=== PATIENT | female | born 1980 | race Hispanic/Latino ===

== ENCOUNTER 2019-01-15 19:28 | Emergency (ER) | payer MEDICARE ==
--- NOTE | 2019-01-15 20:56 | Emergency Department Report ---
ED Seizure HPI - General Chief Complaint: Seizure Stated Complaint: SEIZURE Time Seen by Provider: 01/15/19 20:08 Source: EMS, RN notes reviewed, old records reviewed (CT head performed 01/15/2019 at [facility] showed no acute intracranial abnormality) Mode of arrival: Stretcher Limitations: No Limitations - History of Present Illness Initial Comments: 38-year-old female with a past medical history anxiety, methamphetamine abuse, alcohol abuse, and Xanax 1mg use tid presents to the hospital from [facility] for seizure like activity. Patient was just medically cleared by [facility] ER and admitted to [facility] today. Patient was in prison last night after being picked up for public toxic upon release she was not alert and oriented his recent ER evaluation. Presented dismissive and uncooperative and did not want to speak to staff. 1013 was signed for psychosis. Patient had labs and a CT head and was subsequently medically cleared to go to the [facility]. Patient denies a history of seizures with the exception of the seizure she had thismorning. [facility] records state that patient reported an episode of clenching her tongue prior to ED arrival but no signs of tounge injury was seen on exam.. At [facility] today she had an episode that is not well described by staff but thought to be seizure-like activity and patient did not have any disorientation or postictal state after episode. - Related Data Allergies Allergy/AdvReac Type Severity Reaction Status Date / Time No Known Allergies Allergy Verified 01/15/19 19:44 ED Review of Systems ROS: Stated complaint: SEIZURE Other details as noted in HPI Comment: All other systems reviewed and negative ED Past Medical Hx - Past Medical History Previous Medical History?: Yes Hx Seizures: Yes (anxiety, substance abuse: meth, bipolar?) - Surgical History Past Surgical History?: No - Social History Smoking Status: Current Every Day Smoker Substance Use Type: Marijuana, Prescribed, Methamphetamines ED Physical Exam - General Limitations: No Limitations - Other Other exam information: General: No limitations, patient is alert in no acute distress Head exam: Atraumatic, normocephalic Eyes exam: Normal appearance, pupils equal reactive to light, extraocular movements intact ENT: Moist mucous membrane, normal oropharynx Neck exam: Normal inspection, full range of motion, no meningismus nontender Respiratory exam: Clear to auscultation bilateral, no wheezes, rales, crackles Cardiovascular: Normal rate and rhythm, normal heart sounds Abdomen: Soft, nondistended, and nontender, with normal bowel sounds, no rebound, or guarding Extremity: Full range of motion normal inspection no deformity Back: Normal Inspection, full range of motion, no tenderness Neurologic: Alert, oriented x3, cranial nerves intact, no motor or sensory defic it Psychiatric: Intimately cooperative Skin: Warm, dry, intact ED Course Vital Signs 01/15/19 01/15/19 01/15/19 19:28 20:29 21:22 Temperature 98.4 F Pulse Rate 90 79 85 Respiratory 16 20 17 Rate Blood Pressure 120/70 128/84 135/89 [Left] O2 Sat by Pulse 99 100 96 Oximetry 01/16/19 00:04 Temperature Pulse Rate 84 Respiratory 18 Rate Blood Pressure 130/81 [Left] O2 Sat by Pulse 100 Oximetry ED Medical Decision Making - Lab Data Result diagrams: 01/15/19 20:38 01/15/19 20:38 Lab Results 01/15/19 01/15/19 01/15/19 Range/Units 20:38 20:38 20:38 WBC 11.2 H (4.5-11.0) K/mm3 RBC 4.37 (3.65-5.03) M/mm3 Hgb 12.9 (10.1-14.3) gm/dl Hct 38.7 (30.3-42.9) % MCV 89 (79-97) fl MCH 30 (28-32) pg MCHC 33 (30-34) % RDW 13.0 L (13.2-15.2) % Plt Count 271 (140-440) K/mm3 Lymph % (Auto) 10.6 L (13.4-35.0) % Mayes % (Auto) 6.2 (0.0-7.3) % Eos % (Auto) 0.7 (0.0-4.3) % Baso % (Auto) 0.2 (0.0-1.8) % Lymph # 1.2 (1.2-5.4) K/mm3 Mayes # 0.7 (0.0-0.8) K/mm3 Eos # 0.1 (0.0-0.4) K/mm3 Baso # 0.0 (0.0-0.1) K/mm3 Seg Neutrophils % 82.3 H (40.0-70.0) % Seg Neutrophils # 9.2 H (1.8-7.7) K/mm3 Sodium 136 L (137-145) mmol/L Potassium 3.9 (3.6-5.0) mmol/L Chloride 102.3 (98-107) mmol/L Carbon Dioxide 23 (22-30) mmol/L Anion Gap 15 mmol/L BUN 13 (7-17) mg/dL Creatinine 0.9 (0.7-1.2) mg/dL Estimated GFR > 60 ml/min BUN/Creatinine Ratio 14 % Glucose 115 H (65-100) mg/dL Calcium 9.0 (8.4-10.2) mg/dL Magnesium 2.00 (1.7-2.3) mg/dL Total Creatine Kinase (30-135) units/L HCG, Qual (Negative) Urine Opiates Screen Urine Methadone Screen Ur Barbiturates Screen Ur Phencyclidine Scrn Ur Amphetamines Screen U Benzodiazepines Scrn Urine Cocaine Screen U Marijuana (THC) Screen Drugs of Abuse Note 01/15/19 01/15/19 01/15/19 Range/Units 20:38 20:38 22:18 WBC (4.5-11.0) K/mm3 RBC (3.65-5.03) M/mm3 Hgb (10.1-14.3) gm/dl Hct (30.3-42.9) % MCV (79-97) fl MCH (28-32) pg MCHC (30-34) % RDW (13.2-15.2) % Plt Count (140-440) K/mm3 Lymph % (Auto) (13.4-35.0) % Mayes % (Auto) (0.0-7.3) % Eos % (Auto) (0.0-4.3) % Baso % (Auto) (0.0-1.8) % Lymph # (1.2-5.4) K/mm3 Mayes # (0.0-0.8) K/mm3 Eos # (0.0-0.4) K/mm3 Baso # (0.0-0.1) K/mm3 Seg Neutrophils % (40.0-70.0) % Seg Neutrophils # (1.8-7.7) K/mm3 Sodium (137-145) mmol/L Potassium (3.6-5.0) mmol/L Chloride (98-107) mmol/L Carbon Dioxide (22-30) mmol/L Anion Gap mmol/L BUN (7-17) mg/dL Creatinine (0.7-1.2) mg/dL Estimated GFR ml/min BUN/Creatinine Ratio % Glucose (65-100) mg/dL Calcium (8.4-10.2) mg/dL Magnesium (1.7-2.3) mg/dL Total Creatine Kinase 400 H (30-135) units/L HCG, Qual Negative (Negative) Urine Opiates Screen Presumptive negative Urine Methadone Screen Presumptive negative Ur Barbiturates Screen Presumptive negative Ur Phencyclidine Scrn Presumptive negative Ur Amphetamines Screen Presumptive positive U Benzodiazepines Scrn Presumptive negative Urine Cocaine Screen Presumptive negative U Marijuana (THC) Screen Presumptive negative Drugs of Abuse Note Disclamer - EKG Data -: EKG Interpreted by [facility] EKG shows normal: sinus rhythm, axis (qrs 62), QRS complexes (qrsd 81), ST-T waves (no stemi/t inv) Rate: normal (81) - Medical Decision Making Patient had a normal CT scan earlier today and therefore it is not repeated. It appears she had a similar presentation as per [facility] medical record. UDS positive for methamphetamines It is unclear exactly what type of movement patient had prior to arrival but there are no reports of post ictal state. She will be discharged back to [facility] at this time Patient does not have vital sinuses suggesting acute alcohol benzodiazepine withdrawal. - Differential Diagnosis pseudoseizure, seizure, alcohol withdrawal, benzodiazepine withdrawal Critical Care Time: No Critical care attestation.: If time is entered above; I have spent that time in minutes in the direct care of this critically ill patient, excluding procedure time. ED Disposition Clinical Impression: Seizure-like activity, Methamphetamine abuse Disposition: [id number] PSY HOSP/PSY UNIT Is pt being admited?: No Does the pt Need Aspirin: No Condition: Stable Instructions: Epilepsy (ED), Non-epileptic Seizures (ED), Methamphetamine Abuse (ED) Additional Instructions: Follow up with a neurologist as an outpatient for further workup and evaluation for your seizure-like activity. Return if symptoms worsen as indicated by your discharge instructions Referrals: LUDY DOBBSTENAFLY MD BLAISE [Primary Care Provider] - 3-5 Days ESTELA MAURO MD [Staff Physician] - 3-5 Days (Neurolgy ) TIAN JONES MD [Staff Physician] - 3-5 Days (neurology ) Time of Disposition: 00:11
[2019-01-15 21:07] LABS: Basophils % (Auto) 0.2 % (0.0-1.8); Eosinophils # (Auto) 0.1 K/mm3 (0.0-0.4); Eosinophils % (Auto) 0.7 % (0.0-4.3); Hematocrit 38.7 % (30.3-42.9); Hemoglobin 12.9 gm/dl (10.1-14.3); Lymphocytes # (Auto) 1.2 K/mm3 (1.2-5.4); Lymphocytes % (Auto) 10.6 % (13.4-35.0); Mean Corpuscular HGB Conc 33 % (30-34); Mean Corpuscular Volume 89 fl (79-97); Monocytes # (Auto) 0.7 K/mm3 (0.0-0.8); Monocytes % (Auto) 6.2 % (0.0-7.3); Platelet Count 271 K/mm3 (140-440); Red Blood Count 4.37 M/mm3 (3.65-5.03)
[2019-01-15 21:18] LABS: BUN/Creatinine Ratio 14; Blood Urea Nitrogen 13 mg/dL (7-17); Hemolysis Index 10
[2019-01-15 23:08] LABS: Benzodiazepines Screen,Urine PRESUMPTIVE NEGATIVE; Cannabinoid Screen,Urine PRESUMPTIVE NEGATIVE; Methadone Screen,Urine PRESUMPTIVE NEGATIVE; Opiate Screen,Urine PRESUMPTIVE NEGATIVE
[2019-01-15 23:54] LABS: Amphetamine Screen,Urine PRESUMPTIVE POSITIVE; Cocaine Screen,Urine PRESUMPTIVE NEGATIVE
[2019-01-16 01:35] VITALS: BP 125/67
== END 2019-01-16 02:32 ==
LOC: ED 19:28
DX: R56.9 Unspecified convulsions (principal); F15.10 Other stimulant abuse, uncomplicated; F41.9 Anxiety disorder, unspecified; F31.9 Bipolar disorder, unspecified; F12.90 Cannabis use, unspecified, uncomplicated; F17.200 Nicotine dependence, unspecified, uncomplicated
CPT/HCPCS: 36415; 80048; 80307; 82550; 83735; 84703; 85025; 93005; 93010; 99284